=== PATIENT | female | born 1960 | race Caucasian/White ===

== ENCOUNTER 2017-07-06 23:37 | Inpatient (IN) | payer MEDICAID ==
[2017-07-07] MEDS ORDERED: diltiaZEM 100 mg Vial ( ADD-VANTAGE ) IV ONE (00:32)
[2017-07-07 01:05] LABS: BASO # 0.1 K/uL (0.0-0.2); BASO % 1.3 % (0.0-2.0); EOS # 0.2 K/uL (0.0-0.7); EOS % 2.5 % (0.0-4.0); HEMATOCRIT 37.6 % (34.0-47.0); LYMPH # 4.3 K/uL (1.0-4.3); LYMPH % 43.8 % (20.0-40.0); MEAN CELL VOLUME 84.5 fl (81.0-99.0); MEAN CORPUSCULAR HEMOGLOBIN 26.4 pg (27.0-31.0); MEAN CORPUSCULAR HGB CONC 31.2 g/dL (33.0-37.0); MONO # 0.8 K/uL (0.0-0.8); MONO % 7.7 % (0.0-10.0); NEUT # 4.4 K/uL (1.8-7.0); NEUT % 44.7 % (50.0-75.0); RED CELL DISTRIBUTION WIDTH 18.3 % (11.5-14.5); WHITE BLOOD COUNT 9.8 K/uL (4.8-10.8)
[2017-07-07 01:15] LABS: ALB/GLOB RATIO 1.4 (1.0-2.1); ALKALINE PHOSPHATASE 50 U/L (38-126); ALT/SGPT 36 U/L (9-52); AST/SGOT 33 U/L (14-36); BILIRUBIN,TOTAL 0.4 mg/dl (0.2-1.3); BLOOD UREA NITROGEN 17 mg/dl (7-17); CALCIUM 10.2 mg/dL (8.4-10.2); CARBON DIOXIDE 24 mmol/L (22-30); CHLORIDE 102 mmol/L (98-107); GFR AFRICAN-AMERICAN 56; GLUCOSE,RANDOM 218 mg/dL (65-105); POTASSIUM 3.9 MMOL/L (3.6-5.0); SODIUM 142 mmol/l (132-148); TOTAL PROTEIN 7.6 G/DL (6.3-8.2)
--- NOTE | 2017-07-07 02:35 | ED PDOC ---
HPI: Hypertension/Hypotension Time Seen by Provider: 07/06/17 23:48 Chief Complaint (Nursing): Palpitations Chief Complaint (Provider): Palpitations History Per: Patient History/Exam Limitations: no limitations Onset/Duration Of Symptoms: Hrs Current Symptoms Are (Timing): Still Present Associated Symptoms: Dizziness. denies: Chest Pain Additional Complaint(s): 56 year old female, past medical history of diabetes, dyslipidemia, arthritis, vertigo, and atrial fibrillation, presents to the ED for evaluation of palpitations. She states that she began to develop a sense of palpitations associated with dizziness at approximately 20:00 this evening. She denies associated chest pains or shortness of breath. She states that symptoms are consistent with past history of rapid atrial fibrillation. She reports compliance with all medications. Denies nausea, vomiting, diaphoresis, fever, or cough. Past Medical History Reviewed: Historical Data, Nursing Documentation, Vital Signs Vital Signs: Last Vital Signs Temp 98.2 F 07/06/17 23:51 Pulse 63 07/07/17 01:30 Resp 17 07/07/17 01:30 BP 111/58 L 07/07/17 01:30 Pulse Ox 99 07/07/17 01:30 - Medical History PMH: Atrial Fibrillation, Diabetes, HTN, Hyperlipidemia Denies: Chronic Kidney Disease - Surgical History Surgical History: (x3) - Family History Family History: States: No Known Family Hx - Home Medications Home Medications: Ambulatory Orders Medication Instructions Recorded Alogliptin Sharad/Metformin HCl 1 tab PO DAILY 07/07/17 [Alogliptin-Metformin 12.5-1000] Atorvastatin [Lipitor] 10 mg PO DAILY 07/07/17 Cyclobenzaprine [Flexeril] 5 mg PO PRN PRN 07/07/17 Diclofenac Sodium [Voltaren] 1 appl TOP DAILY 07/07/17 Diltiazem HCl [Cartia Xt] 1 tab PO DAILY 07/07/17 Empagliflozin [Jardiance] 10 mg PO DAILY 07/07/17 Fenofibrate [Triglide] 1 tab PO DAILY 07/07/17 Gabapentin [Neurontin] 100 mg PO TID 07/07/17 Glipizide [Glipizide ER] 1 tab PO DAILY 07/07/17 Losartan/Hydrochlorothiazide 1 tab PO DAILY 07/07/17 [Losartan-Hctz 100-25 mg Tab] Meclizine [Antivert] 1 tab PO PRN PRN 07/07/17 Repaglinide [Prandin] 2 mg PO DAILY 07/07/17 Warfarin [Coumadin] 1 tab PO DAILY 07/07/17 Warfarin [Coumadin] 10 mg PO DAILY 07/07/17 - Allergies Allergies/Adverse Reactions: Allergies Allergy/AdvReac Type Severity Reaction Status Date / Time No Known Allergies Allergy Unverified 11/19/14 15:50 Review of Systems Constitutional: Negative for: Fever Cardiovascular: Positive for: Palpitations. Negative for: Chest Pain Respiratory: Negative for: Cough, Shortness of Breath Gastrointestinal: Negative for: Nausea, Vomiting Neurological: Positive for: Dizziness Physical Exam - Reviewed Nursing Documentation Reviewed: Yes Vital Signs Reviewed: Yes - Physical Exam Appears: Positive for: Non-toxic, No Acute Distress Head Exam: Positive for: ATRAUMATIC, NORMOCEPHALIC Skin: Positive for: Normal Color, Warm, Dry Eye Exam: Positive for: EOMI, Normal appearance, PERRL Neck: Positive for: Normal, Painless ROM, Supple Cardiovascular/Chest: Positive for: Tachycardia, Irregularly Irregular Respiratory: Positive for: Normal Breath Sounds. Negative for: Respiratory Distress Gastrointestinal/Abdominal: Positive for: Normal Exam, Soft. Negative for: Tenderness Back: Positive for: Normal Inspection. Negative for: L CVA Tenderness, R CVA Tenderness, Other (midline tenderness) Extremity: Positive for: Normal ROM. Negative for: Pedal Edema, Deformity Neurologic/Psych: Positive for: Alert, Oriented. Negative for: Motor/Sensory Deficits - Laboratory Results Result Diagrams: 07/07/17 01:01 07/07/17 01:01 - ECG O2 Sat by Pulse Oximetry: 99 - Critical Care Total Time (In Min): 30 Medical Decision Making Medical Decision Making: Impression: 56 year old female with palpitations in setting of known rapid A-fib Plan: Labs EKG CXR Trial of IV cardizem bolus EK:47 A-fib with RVR at [address] and T wave abnormalities. Resolution of symptoms immediately after Cardizem administered at 01:34 Repeat EKG: Sinus arrhythmia at 69 bpm. CXR: No acute disease. Labs reviewed. No clinically significant abnormalities. Will admit for further monitoring and treatment. Case referred to Dr. Mace who covers Dr. Mir, the patients PMD. Diagnosis: Rapid A-fib with RVR Condition: Fair Scribe Attestation: Documented by Waqar Baer acting as a scribe for Harley Hurley MD. Scribe Attestation: All medical record entries made by the Scribe were at my direction and personally dictated by me. I have reviewed the chart and agree that the record accurately reflects my personal performance of the history, physical exam, medical decision making, and the department course for this patient. I have also personally directed, reviewed, and agree with the discharge instructions and disposition. Disposition - Clinical Impression Clinical Impression: Atrial fibrillation, rapid - Patient ED Disposition Is Patient to be Admitted: Yes Discussed With : Jose Mace Counseled Patient/Family Regarding: Studies Performed, Diagnosis - Disposition Disposition Time: 01:30 Condition: FAIR - Pt Status Changed To: Hospital Disposition Of: Inpatient - Admit Certification Admit to Inpatient:: After my assessment, the patient will require hospitalization for at least two midnights. This is because of the severity of symptoms shown, intensity of services needed, and/or the medical risk in this patient being treated as an outpatient. - POA Present On Arrival: None
[2017-07-07] MEDS ORDERED: Influenza Vaccine 18yr & older 0.5 ML/45 MCG SYR IM ONE (06:00)
[2017-07-07 08:34] LABS: HEMATOCRIT 35.2 % (34.0-47.0); MEAN CELL VOLUME 84.3 fl (81.0-99.0); MEAN CORPUSCULAR HEMOGLOBIN 26.4 pg (27.0-31.0); MEAN CORPUSCULAR HGB CONC 31.3 g/dL (33.0-37.0); RED CELL DISTRIBUTION WIDTH 18.7 % (11.5-14.5); WHITE BLOOD COUNT 7.6 K/uL (4.8-10.8)
[2017-07-07 08:47] LABS: ALB/GLOB RATIO 1.4 (1.0-2.1); ALKALINE PHOSPHATASE 52 U/L (38-126); ALT/SGPT 28 U/L (9-52); AST/SGOT 65 U/L (14-36); BILIRUBIN,TOTAL 0.4 mg/dl (0.2-1.3); BLOOD UREA NITROGEN 16 mg/dl (7-17); CALCIUM 9.8 mg/dL (8.4-10.2); CARBON DIOXIDE 23 mmol/L (22-30); CHLORIDE 103 mmol/L (98-107); CHOLESTEROL 142 mg/dL (0-199); GFR AFRICAN-AMERICAN > 60; GLUCOSE,RANDOM 134 mg/dL (65-105); POTASSIUM 3.9 MMOL/L (3.6-5.0); SODIUM 141 mmol/l (132-148); TOTAL PROTEIN 6.8 G/DL (6.3-8.2)
[2017-07-07] MEDS ORDERED: FENOFIBRATE PO SCH (09:00)
[2017-07-07] MEDS ORDERED: Patient's Own Med (Losartan/Hydrochlorothiazide [Losartan-Hctz 100-25 Mg Tab] 1 TAB) PO SCH (09:00)
[2017-07-07] MEDS ORDERED: Patient's Own Med (Alogliptin Benz/Metformin Hcl [Alogliptin-Metformin 12.5-1000] 1 TAB) PO SCH (09:00)
[2017-07-07] MEDS: GlipiZIDE 10 mg SR Tab PO SCH (09:07)
[2017-07-07] MEDS: diltiaZEM 240 mg/24 Hours CD Cap PO SCH (09:07)
[2017-07-07] MEDS: Insulin Regular 100 units/ml SC SCH ×4 (09:08→21:57)
[2017-07-07 09:18] LABS: THYROID STIMULATING HORMONE 1.04 mIU/ML (0.46-4.68)
--- NOTE | 2017-07-07 09:37 | CARD ---
APPROVED REPORT EKG Measurement Heart [id number] <Conclusion> Atrial fibrillation with rapid ventricular response ST & T wave abnormality, consider inferolateral ischemia Abnormal ECG
--- NOTE | 2017-07-07 11:12 | RAD ---
HISTORY: chest pain COMPARISON: No prior. FINDINGS: LUNGS: No active pulmonary disease. PLEURA: No significant pleural effusion identified, no pneumothorax apparent. CARDIOVASCULAR: Normal. OSSEOUS STRUCTURES: No significant abnormalities. VISUALIZED UPPER ABDOMEN: Normal. OTHER FINDINGS: None. IMPRESSION: No active disease.
--- NOTE | 2017-07-07 13:34 | CP.PCM.CON ---
History of Present Illness - History of Present Illness History of Present Illness: PT PRESENTED WITH CHEST TIGHTNESS AND PALP. THE SX WERE WAXING AND WEANING OVER 1 DAY. UPON ARRIVAL SHE WAS IN RAPID AFIB. SHE HAS CHRONIC AFIB, ON WARFARIN, NO ISSUES WITH BLEEDING, DENIES SYNCOPE, DENIES PRIOR CARDIOVERSION. PT ADMITS TO ROMERO, NO LH, DIZZINESS, WEAKNESS, DIAPHORESIS, N/V/D/C. SHE IS COMPLIANT WITH HER MEDS. Review of Systems - Constitutional Constitutional: As Per HPI. absent: Anorexia, Chills, Daytime Sleepiness, Excessive Sweating, Fatigue, Fever, Frequent Falls, Headache, Increased Appetite , Lethargy, Malaise, Night Sweats, Snoring, Sleep Apnea, Weight Gain, Weight Loss, Weakness, Other - EENT Eyes: As Per HPI. absent: Blind Spots, Blurred Vision, Change in Vision, Decreased Night Vision, Diplopia, Discharge, Dry Eye, Exophthalmos, Floaters, Irritation, Itchy Eyes, Loss of Peripheral Vision, Pain, Photophobia, Requires Corrective Lenses, Sees Flashes, Spots in Vision, Tunnel Vision, Other Visual Disturbances, Loss of Vision, Other Ears: As Per HPI. absent: Decreased Hearing, Ear Discharge, Ear Pain, Tinnitus , Abnormal Hearing, Disequilibrium, Dizziness, Other Nose/Mouth/Throat: As Per HPI. absent: Epistaxis, Nasal Congestion, Nasal Discharge, Nasal Obstruction, Nasal Trauma, Nose Pain, Post Nasal Drip, Sinus Pain, Sinus Pressure, Bleeding Gums, Change in Voice, Dental Pain, Dry Mouth, Dysphagia, Halitosis, Hoarsness, Lip Swelling, Mouth Lesions, Mouth Pain, Odynophagia, Sore Throat, Throat Swelling, Tongue Swelling, Facial Pain, Neck Pain, Neck Mass, Other - Breasts Breasts: As Per HPI. absent: Change in Shape, Mass, Pain, Nipple Discharge, Nipple Inversion, Skin Changes, Swelling, Other - Cardiovascular Cardiovascular: Chest Pain with Activity, Dyspnea on Exertion, Leg Edema, Palpitations, Rapid Heart Rate. absent: As Per HPI, Acrocyanosis, Chest Pain, Chest Pain at Rest, Claudication, Diaphoresis, Dyspnea, Edema, Irregular Heart Rhythm, Pain Radiating to Arm/Neck/Jaw, Leg Ulcers, Lightheadedness, Orthopnea, Paroxysmal Nocturnal Dyspnea, Radiating Pain, Slow Heart Rate, Syncope, Other - Respiratory Respiratory: As Per HPI. absent: Cough, Dyspnea, Hemoptysis, Dyspnea on Exertion, Wheezing, Snoring, Stridor, Pain on Inspiration, Chest Congestion, Excessive Mucous Production, Change in Mucous Color, Pain with Coughing, Other - Gastrointestinal Gastrointestinal: As Per HPI. absent: Abdominal Pain, Belching, Bloating, Change in Bowel Habits, Change in Stool Character, Coffee Ground Emesis, Constipation, Cramping, Diarrhea, Dyspepsia, Dysphagia, Early Satiety, Excessive Flatus, Fecal Incontinence, Heartburn, Hematemesis, Hematochezia, Loose Stools, Melena, Nausea, Odynophagia, Temesmus, Vomiting, Other - Genitourinary Genitourinary: As Per HPI. absent: Change in Urinary Stream, Difficulty Urinating, Dysuria, Flank Pain, Hematuria, Pyuria, Nocturia, Urinary Incontinence, Urinary Frequency, Urinary Hesitance, Urinary Urgency, Voiding Freq/Small Amts, Freq UTI, Hx Renal/Bladder Calculi, Hx /Renal Surgery, Bladder Distension, Other - Reproductive: Female Reproductive:Female: As Per HPI. absent: Amenorrhea, Amenorrhea/ Control, Currently Menstual, Cycle <21 Days, Cycle >35 Days, Cycle Variable, Menses 1-7 Days, Menses >/= 8 Days, Menses Variable, Cycle > 4 Weeks Between, No Menses for 6 Months, Heavy Menses, Light Menses, Normal Menses, Spotting Between Cycles , S/P Hysterectomy, Menopausal, Post Menopausal, Premenarche, Abnormal Vaginal Bleeding, Dysmenorrhea, Dyspareunia, Genital Lesions, Genital Pruritis, Pelvic Pain, Prolapse Symptoms, Sexual Dysfunction, Vaginal Discharge, Vaginal Dryness , Vaginal Odor, Vaginal Pruritis, Other - Menstruation Menstruation: As Per HPI. absent: Amenorrhea, Amenorrhea/ Control, Currently Menstual, Cycle <21 Days, Cycle >35 Days, Cycle Variable, Menses 1-7 Days, Menses >/= 8 Days, Menses Variable, Cycle > 4 Weeks Between, No Menses for 6 Months, Heavy Menses, Light Menses, Normal Menses, Spotting Between Cycles , S/P Hysterectomy, Menopausal, Post Menopausal, Premenarche, Abnormal Vaginal Bleeding, Dysmenorrhea, Other - Musculoskeletal Musculoskeletal: As Per HPI. absent: Abnormal Gait, Arthralgias, Atrophy, Back Pain, Deformity, Joint Swelling, Limited Range of Motion, Loss of Height, Muscle Cramps, Muscle Weakness, Myalgias, Neck Pain, Numbness, Radiating Pain into Limb, Stiffness, Tingling, Other - Integumentary Integumentary: As Per HPI. absent: Acne, Alopecia, Bleeding Lesions, Change in Hair, Change in Nails, Change in Pigmentation, Changing Lesions, Dry Skin, Erythema, Furuncle, Hirsutism, Lesions, New Lesions, Non-Healing Lesions, Photosensitivity, Pruritus, Rash, Skin Pain, Skin Ulcer, Sores, Striae, Swelling , Unusual Bruising, Wounds, Jaundice, Other - Neurological Neurological: As Per HPI. absent: Abnormal Gait, Abnormal Hearing, Abnormal Movements, Abnormal Speech, Behavioral Changes, Burning Sensations, Confusion, Convulsions, Disequilibrium, Dizziness, Numbness, Focal Weakness, Frequent Falls , Headaches, Lack of Coordination, Loss of Vision, Memory Loss, Paresthesias, Radicular Pain, Restless Legs, Sensory Deficit, Syncope, Tingling, Tremor, Vertigo, Weakness, Other Visual Disturbances, Other - Psychiatric Psychiatric: As Per HPI. absent: Abnormal Sleep Pattern, Anhedonia, Anxiety, Auditory Hallucinations, Behavioral Changes, Change in Appetite, Change in Libido, Confusion, Depression, Difficulty Concentrating, Hallucinations, Homicidal Ideation, Hopelessness, Irritability, Memory Loss, Mood Swings, Panic Attacks, Paranoia, Suicidal Ideation, Visual Hallucinations, Tactile Hallucinations, Other - Endocrine Endocrine: As Per HPI. absent: Change in Body Appearance, Change in Libido, Cold Intolorance, Deepening of Voice, Excessive Sweating, Fatigue, Flushing, Heat Intolorance, Increase in Ring/Shoe/Hat Size, Palpitations, Polydipsia, Polyphagia, Polyuria, Other - Hematologic/Lymphatic Hematologic: As Per HPI. absent: Easy Bleeding, Easy Bruising, Lymphadenopathy , Other Past Patient History - Past Medical History & Family History Past Medical History?: Yes - Past Social History Smoking Status: Former Smoker Chewing Tobacco Use: No Cigar Use: No Alcohol: None Drugs: Denies - CARDIAC Hx Atrial Fibrillation: Yes Hx Hypertension: Yes - PULMONARY Hx Respiratory Disorders: No - NEUROLOGICAL Hx Neurological Disorder: Yes Hx Vertigo: Yes - HEENT Hx HEENT Problems: No - RENAL Hx Chronic Kidney Disease: No - ENDOCRINE/METABOLIC Hx Endocrine Disorders: Yes Hx Diabetes Mellitus Type 2: Yes - HEMATOLOGICAL/ONCOLOGICAL Hx Blood Disorders: No - INTEGUMENTARY Hx Dermatological Problems: No - MUSCULOSKELETAL/RHEUMATOLOGICAL Hx Musculoskeletal Disorders: Yes Hx Arthritis: Yes Hx Falls: No - GASTROINTESTINAL Hx Gastrointestinal Disorders: No - GENITOURINARY/GYNECOLOGICAL Hx Genitourinary Disorders: No - PSYCHIATRIC Hx Psychophysiologic Disorder: No Hx Substance Use: No - SURGICAL HISTORY Hx Surgeries: Yes Hx Cataract Extraction: Yes Hx Section: Yes (x3) - ANESTHESIA Hx Anesthesia: Yes Hx Anesthesia Reactions: No Hx Malignant Hyperthermia: No Meds Allergies/Adverse Reactions: Allergies Allergy/AdvReac Type Severity Reaction Status Date / Time No Known Allergies Allergy Unverified 11/19/14 15:50 - Medications Medications: Current Medications Atorvastatin Calcium (Lipitor) 10 mg PO DAILY [facility] Last Admin: 07/07/17 09:08 Dose: 10 mg Cyclobenzaprine HCl (Flexeril) 5 mg PO BID PRN PRN Reason: Muscle Spasm Diltiazem HCl (Cardizem Cd) 240 mg PO DAILY [facility] Last Admin: 07/07/17 09:07 Dose: 240 mg Fenofibrate (Tricor) 145 mg PO DAILY [facility] Last Admin: 07/07/17 09:07 Dose: 145 mg Gabapentin (Neurontin) 100 mg PO TID [facility] Last Admin: 07/07/17 12:30 Dose: 100 mg Glipizide (Glucotrol Xl) 10 mg PO DAILY [facility] Last Admin: 07/07/17 09:07 Dose: 10 mg Home Med (Alogliptin Sharad/Metformin Hcl [Alogliptin-Metformin 12.5-1000]) 1 tab PO DAILY [facility] Home Med (Diclofenac Sodium [Voltaren]) 1 appl TOP DAILY [facility] Home Med (Empagliflozin [Jardiance]) 10 mg PO DAILY [facility] Hydrochlorothiazide (Hydrodiuril) 25 mg PO DAILY [facility] Last Admin: 07/07/17 09:08 Dose: 25 mg Insulin Human Regular (Humulin R) 0 units SC [facility] PRN Reason: Protocol Last Admin: 07/07/17 12:29 Dose: 2 units Losartan Potassium (Cozaar) 100 mg PO DAILY [facility] Last Admin: 07/07/17 09:07 Dose: 100 mg Meclizine HCl (Antivert) 12.5 mg PO BID PRN PRN Reason: Dizziness Repaglinide (Prandin) 2 mg PO DAILY [facility] Last Admin: 07/07/17 09:08 Dose: 2 mg Physical Exam - Constitutional Appears: Well - Head Exam Head Exam: ATRAUMATIC, NORMAL INSPECTION, NORMOCEPHALIC - Eye Exam Eye Exam: EOMI, Normal appearance, PERRL. absent: Conjunctival injection, Nystagmus, Periorbital swelling, Periorbital tenderness, Scleral icterus Pupil Exam: NORMAL ACCOMODATION, PERRL. absent: Fixed, Irregular, Miosis, Mydriatic, Unequal - ENT Exam ENT Exam: Mucous Membranes Moist, Normal Exam. absent: Mucous Membranes Dry, Normal External Ear Exam, Normal Oropharynx, TM's Normal Bilaterally - Neck Exam Neck exam: Positive for: Normal Inspection. Negative for: Full Rom, Lymphadenopathy, Meningismus, Tenderness, Thyromegaly - Respiratory Exam Respiratory Exam: Clear to Auscultation Bilateral, NORMAL BREATHING PATTERN. absent: Accessory Muscle Use, Chest Wall Tenderness, Decreased Breath Sounds, Prolonged Expiratory Phase, Rales, Rhonchi, Wheezes, Respiratory Distress, Stridor - Cardiovascular Exam Cardiovascular Exam: Irregular Rhythm, +S1, +S2, Systolic Murmur. absent: Bradycardia, Tachycardia, Clicks, Diastolic murmur, Gallop, REGULAR RHYTHM, JVD , RRR, Rubs, +S4 - GI/Abdominal Exam GI & Abdominal Exam: Normal Bowel Sounds, Soft. absent: Bruit, Diminished Bowel Sounds, Distended, Firm, Guarding, Hernia, Hyperactive Bowel Sounds, Hypoactive Bowel Sounds, Mass, Organomegaly, Pulsatile Mass, Rebound, Rigid, Tenderness - Rectal Exam Rectal Exam: Deferred - Extremities Exam Extremities exam: Positive for: pedal edema, pedal pulses present. Negative for : calf tenderness, full ROM, joint swelling, normal capillary refill, normal inspection, tenderness - Back Exam Back exam: NORMAL INSPECTION. absent: CVA tenderness (L), CVA tenderness (R), FULL ROM, muscle spasm, paraspinal tenderness, rash noted, tenderness, vertebral tenderness - Neurological Exam Neurological exam: Alert, CN II-XII Intact, Normal Gait, Oriented x3, Reflexes Normal - Psychiatric Exam Psychiatric exam: Normal Affect, Normal Mood - Skin Skin Exam: Dry, Intact, Normal Color, Warm Results - Vital Signs Recent Vital Signs: Last Vital Signs Temp 98.5 F 07/07/17 12:29 Pulse 50 L 07/07/17 12:29 Resp 14 07/07/17 12:29 BP 96/65 L 07/07/17 12:29 Pulse Ox 97 07/07/17 12:29 - Labs Result Diagrams: 07/07/17 08:05 07/07/17 08:05 Labs: Laboratory Results - last 24 hr 07/07/17 07/07/17 07/07/17 01:01 01:01 01:01 WBC 9.8 RBC 4.46 Hgb 11.7 L Hct 37.6 MCV 84.5 MCH 26.4 L MCHC 31.2 L RDW 18.3 H Plt Count 387 MPV 9.0 Neut % (Auto) 44.7 L Lymph % (Auto) 43.8 H Lamb % (Auto) 7.7 Eos % (Auto) 2.5 Baso % (Auto) 1.3 Neut # 4.4 Lymph # 4.3 Lamb # 0.8 Eos # 0.2 Baso # 0.1 PT 27.4 H INR 2.6 H APTT 45.0 H Sodium 142 Potassium 3.9 Chloride 102 Carbon Dioxide 24 Anion Gap 20 BUN 17 Creatinine 1.2 Est GFR ( Amer) 56 Est GFR (Non-Af Amer) 46 POC Glucose (mg/dL) Random Glucose 218 H Calcium 10.2 Total Bilirubin 0.4 AST 33 ALT 36 Alkaline Phosphatase 50 Troponin I < 0.0120 Total Protein 7.6 Albumin 4.4 Globulin 3.2 Albumin/Globulin Ratio 1.4 Triglycerides Cholesterol LDL Cholesterol Direct HDL Cholesterol Vitamin B12 TSH 3rd Generation 07/07/17 07/07/17 07/07/17 05:07 08:05 08:05 WBC 7.6 RBC 4.17 Hgb 11.0 L Hct 35.2 MCV 84.3 MCH 26.4 L MCHC 31.3 L RDW 18.7 H Plt Count 346 MPV Neut % (Auto) Lymph % (Auto) Lamb % (Auto) Eos % (Auto) Baso % (Auto) Neut # Lymph # Lamb # Eos # Baso # PT INR APTT Sodium 141 Potassium 3.9 Chloride 103 Carbon Dioxide 23 Anion Gap 19 BUN 16 Creatinine 1.1 Est GFR ( Amer) > 60 Est GFR (Non-Af Amer) 51 POC Glucose (mg/dL) 108 Random Glucose 134 H Calcium 9.8 Total Bilirubin 0.4 AST 65 H D ALT 28 Alkaline Phosphatase 52 Troponin I Total Protein 6.8 Albumin 4.0 Globulin 2.9 Albumin/Globulin Ratio 1.4 Triglycerides 237 H Cholesterol 142 LDL Cholesterol Direct 80 HDL Cholesterol 36 Vitamin B12 > 1000 H TSH 3rd Generation 1.04 07/07/17 07/07/17 08:05 11:05 WBC RBC Hgb Hct MCV MCH MCHC RDW Plt Count MPV Neut % (Auto) Lymph % (Auto) Lamb % (Auto) Eos % (Auto) Baso % (Auto) Neut # Lymph # Lamb # Eos # Baso # PT INR APTT Sodium Potassium Chloride Carbon Dioxide Anion Gap BUN Creatinine Est GFR ( Amer) Est GFR (Non-Af Amer) POC Glucose (mg/dL) 246 H Random Glucose Calcium Total Bilirubin AST ALT Alkaline Phosphatase Troponin I < 0.0120 Total Protein Albumin Globulin Albumin/Globulin Ratio Triglycerides Cholesterol LDL Cholesterol Direct HDL Cholesterol Vitamin B12 > 1000 H TSH 3rd Generation - EKG Data EKG Interpreted by: Myself Rate: Tachycardia - Impressions Impression: RAPID AFIB Assessment & Plan (1) Chest pain Status: Acute (2) Palpitation Status: Acute (3) ROMERO (dyspnea on exertion) Status: Acute (4) Low BP Status: Acute (5) Atrial fibrillation, rapid Status: Acute - Assessment and Plan (Free Text) Plan: BP LOW, STOP LOSARTAN AND HCTZ ON WARFARIN NEEDS ECHO AND ST CURRENTLY IN SR CONT MONITOR 1GM MAG JESSICA PALACIOS IN AM
[2017-07-07] MEDS ORDERED: Magnesium Sulfate 1 gm in D5W 1 GM/100 ML BAG IVPB ONE (17:25)
[2017-07-07] MEDS ORDERED: Magnesium Sulfate 1 GM in Dextrose 5% In Water 100 ML IV ONE (17:45)
--- NOTE | 2017-07-08 05:31 | HP ---
CHIEF COMPLAINT: Palpitations. HISTORY OF PRESENT ILLNESS: This is a 56-year-old female known case of diabetes, hypertension, arthritis, vertigo, atrial fibrillation, who was having palpitations so the patient was brought to the emergency room and was admitted for further management. REVIEW OF SYSTEMS: Negative for headache, dizziness, syncope. No loss of consciousness, nausea, vomiting, diarrhea, constipation. Any knee joint or extremity pain. Review of systems of all other organ system are unremarkable. PAST MEDICAL HISTORY: Significant for hypertension, diabetes, atrial fibrillation and vertigo. PAST SURGICAL HISTORY: Positive for section. PERSONAL HISTORY: The patient is currently nonsmoker, nondrinker. No substance abuse. MEDICATIONS: The patient is on multiple medications including , Lipitor, Flexeril, Voltaren, Cartia XT, Jardiance, Triglide, Neurontin, glipizide, losartan, hydrochlorothiazide, Antivert, Prandin and Coumadin. ALLERGIES: THE PATIENT IS NOT ALLERGIC TO ANY MEDICATION. FAMILY HISTORY: Noncontributory. PHYSICAL EXAMINATION: GENERAL: Well-built, well-nourished 56-year-old female, in no acute distress. VITAL SIGNS: Temperature afebrile, pulse 88, respirations 18, blood pressure 130/77. HEENT: Pupils are reacting to light. NECK: No JVD. No thyromegaly. No lymphadenopathy. No nystagmus. Normocephalic and atraumatic skull. HEART: S1 and S2 normal. The patient has irregularly irregular rhythm. No murmur, gallop or rub is heard. LUNGS: Shows good bilateral air entry. No rales or rhonchi. ABDOMEN: Soft and nontender. No organomegaly. No fluid. Bowel sounds are present. EXTREMITIES: No edema. No calf swelling. No tenderness. No acute ischemia. CENTRAL NERVOUS SYSTEM: Essentially unchanged. DIAGNOSTIC DATA: Available diagnostic data reviewed. Telemetry monitoring shows atrial fibrillation with controlled ventricular rate. At this time, WBC is 7.6, hemoglobin 11, hematocrit 35.2 and platelets 346. Sodium 141, potassium 3.9, chloride 103, BUN 16 and creatinine 1.1. Accu-cheks are 218, 314 and 246. SMA-12 otherwise is unremarkable. EKG shows atrial fibrillation without any acute ST-T changes. Chest x-ray is clear. ADMITTING IMPRESSION: Atrial fibrillation with rapid ventricular rate, hypertension, type 2 diabetes with hyperglycemia, coronary artery disease. PLAN: As ordered. Case and plan discussed with the patient. Jose Mace MD
[2017-07-08 05:43] LABS: BASO # 0.1 K/uL (0.0-0.2); BASO % 0.9 % (0.0-2.0); EOS # 0.3 K/uL (0.0-0.7); EOS % 3.3 % (0.0-4.0); LYMPH % 37.9 % (20.0-40.0); MEAN CELL VOLUME 84.3 fl (81.0-99.0); MEAN CORPUSCULAR HEMOGLOBIN 26.8 pg (27.0-31.0); MEAN CORPUSCULAR HGB CONC 31.8 g/dL (33.0-37.0); MEAN PLATELET VOLUME 8.6 fl (7.2-11.7); MONO # 0.7 K/uL (0.0-0.8); MONO % 9.1 % (0.0-10.0); NEUT # 3.9 K/uL (1.8-7.0); NEUT % 48.8 % (50.0-75.0); NRBC % 0.1 % (0.0-0.0); RED CELL DISTRIBUTION WIDTH 18.2 % (11.5-14.5); WHITE BLOOD COUNT 7.9 K/uL (4.8-10.8)
[2017-07-08 05:51] LABS: ALB/GLOB RATIO 1.4 (1.0-2.1); BILIRUBIN,TOTAL 0.5 mg/dl (0.2-1.3); CALCIUM 10.3 mg/dL (8.4-10.2); MAGNESIUM 2.3 MG/DL (1.6-2.3); POTASSIUM 4.3 MMOL/L (3.6-5.0); TOTAL PROTEIN 7.1 G/DL (6.3-8.2)
[2017-07-08] MEDS: Insulin Regular 100 units/ml SC SCH ×4 (07:02→21:23)
--- NOTE | 2017-07-08 08:44 | PN ---
DATE: 07/08/2017 SUBJECTIVE: The patient is seen and examined. Interim events noted. Consults noted and appreciated. Cardiology followup and intervention noted and appreciated. The patient remains in progressive care unit, on telemetry monitoring. Denies any specific complaints. No chest pain. No shortness of breath. Palpitations resolved. PHYSICAL EXAMINATION: GENERAL: The patient is in no acute distress. VITAL SIGNS: Stable. HEART: S1 and S2, irregularly irregular . LUNGS: Good bilateral air exchange. ABDOMEN: Soft and nontender. EXTREMITIES: No edema. No calf swelling. No tenderness. No acute ischemia. CENTRAL NERVOUS SYSTEMS: Essentially unchanged. DIAGNOSTIC DATA: Available diagnostic data reviewed. Telemetry monitoring does not show any significant arrhythmias. IMPRESSION: Overall, the patient's general medical condition is stable and improving. The patient needs for possible echocardiogram and nuclear stress test. PLAN: As ordered. Case and plan discussed with the patient. Jose Mace MD
[2017-07-08] MEDS ORDERED: Aminophylline 25 mg/ml Inj ONE (10:17)
[2017-07-08] MEDS: diltiaZEM 240 mg/24 Hours CD Cap PO SCH (16:32)
[2017-07-08] MEDS: GlipiZIDE 10 mg SR Tab PO SCH (16:33)
--- NOTE | 2017-07-08 20:22 | CARD ---
APPROVED REPORT EXAM: Two-dimensional and M-mode echocardiogram with Doppler and color Doppler. Other Information Quality : GoodRhythm : NSR INDICATION Palpitations 2D DIMENSIONS IVSd0.91 (0.7-1.1cm)LVDd4.26 (3.9-5.9cm) LVOT Diameter1.96 (1.8-2.4cm)PWd0.92 (0.7-1.1cm) IVSs1.01 (0.8-1.2cm)LVDs2.82 (2.5-4.0cm) FS (%) 33.8 %PWs1.01 (0.8-1.2cm) M-Mode DIMENSIONS Left Atrium (MM)4.12 (2.5-4.0cm)IVSd1.03 (0.7-1.1cm) Aortic Root3.12 (2.2-3.7cm)LVDd3.91 (4.0-5.6cm) Aortic Cusp Exc.1.97 (1.5-2.0cm)PWd1.09 (0.7-1.1cm) IVSs1.47 cmFS (%) 49 % LVDs2.00 (2.0-3.8cm)PWs1.35 cm Mitral Valve MV E Ieidrzqb44.1cm/sMV DECEL [id number] A Bpkotrvy45.8cm/s MV GWC57mdL/A ratio1.7MVA (PHT)2.82cm2 TDI Lateral E' Peak V12.71cm/sMedial E' Peak V7.74cm/sE/Lateral E'5.6 E/Medial E'9.2 LEFT VENTRICLE The left ventricle is normal in size. There is normal left ventricular wall thickness. The left ventricular function is normal. The left ventricular ejection fraction is - 65-70%. There is normal LV segmental wall motion. The left ventricular diastolic function is normal. No left ventricle thrombus noted on this study. There is no ventricular septal defect visualized. There is no left ventricular aneurysm. There is no mass noted in the left ventricle. RIGHT VENTRICLE The right ventricle is normal size. There is normal right ventricular wall thickness. The right ventricular systolic function is normal. ATRIA The left atrium size is normal. There is no thrombus suspected in the left atrium. The right atrium appears mildly dilated on some 2D views. The interatrial septum is intact with no evidence for an atrial septal defect. AORTIC VALVE The aortic valve is normal in structure and function. No aortic regurgitation is present. There is no aortic valvular stenosis. MITRAL VALVE The mitral valve is normal in structure and function. There is no evidence of mitral valve prolapse. There is no mitral valve stenosis. There is no mitral valve regurgitation noted. TRICUSPID VALVE The tricuspid valve is normal in structure and function. There is trace tricuspid regurgitation. There is no tricuspid valve prolapse or vegetation. There is no tricuspid valve stenosis. PULMONIC VALVE The pulmonic valve is not well visualized. Doppler studies of the PV were not performed. GREAT VESSELS The aortic root is normal in size. The IVC is normal in size and collapses >50% with inspiration. PERICARDIAL EFFUSION The pericardium appears normal. There is no pleural effusion. <Conclusion> The left ventricle is normal in size and wall thickness. The left ventricular function is normal. The left ventricular ejection fraction is - 65-70%. The mitral, aortic and tricuspid valves are normal. There is trace tricuspid regurgitation.
[2017-07-09 06:19] LABS: HEMATOCRIT 36.8 % (34.0-47.0); MEAN CELL VOLUME 84.2 fl (81.0-99.0); MEAN CORPUSCULAR HEMOGLOBIN 26.6 pg (27.0-31.0); MEAN CORPUSCULAR HGB CONC 31.6 g/dL (33.0-37.0); RED CELL DISTRIBUTION WIDTH 18.2 % (11.5-14.5); WHITE BLOOD COUNT 7.8 K/uL (4.8-10.8)
[2017-07-09 06:30] LABS: ALB/GLOB RATIO 1.4 (1.0-2.1); BILIRUBIN,TOTAL 0.4 mg/dl (0.2-1.3); CALCIUM 10.3 mg/dL (8.4-10.2); POTASSIUM 4.4 MMOL/L (3.6-5.0); TOTAL PROTEIN 7.5 G/DL (6.3-8.2)
[2017-07-09] MEDS: Insulin Regular 100 units/ml SC SCH ×4 (06:34→21:32)
[2017-07-09 08:04] VITALS: RESP 18
[2017-07-09] MEDS: diltiaZEM 240 mg/24 Hours CD Cap PO SCH (08:47)
[2017-07-09] MEDS: GlipiZIDE 10 mg SR Tab PO SCH (08:49)
--- NOTE | 2017-07-09 13:24 | CP.PCM.PN ---
<Byron Piedra - Last Filed: 07/10/17 11:14> Subjective - Date & Time of Evaluation Date of Evaluation: 07/09/17 Time of Evaluation: 13:22 - Subjective Subjective: pt seen and examined at bedside this morning with attending. No acute events overnight. Afebrile. No new complaints. Denies any CP/SOB/Palpitations, N/V/D/C , urinary symptoms. Objective - Vital Signs/Intake and Output Vital Signs (last 24 hours): Temp Pulse Resp BP Pulse Ox 98.1 F 53 L 18 113/78 96 07/09/17 12:00 07/09/17 12:00 07/09/17 12:00 07/09/17 12:00 07/09/17 12:00 - Medications Medications: Current Medications Atorvastatin Calcium (Lipitor) 10 mg PO DAILY [facility] Last Admin: 07/09/17 08:49 Dose: 10 mg Cyclobenzaprine HCl (Flexeril) 5 mg PO BID PRN PRN Reason: Muscle Spasm Diltiazem HCl (Cardizem Cd) 240 mg PO DAILY [facility] Last Admin: 07/09/17 08:47 Dose: 240 mg Fenofibrate (Tricor) 145 mg PO DAILY [facility] Last Admin: 07/09/17 08:49 Dose: 145 mg Gabapentin (Neurontin) 100 mg PO TID [facility] Last Admin: 07/09/17 08:49 Dose: 100 mg Glipizide (Glucotrol Xl) 10 mg PO DAILY [facility] Last Admin: 07/09/17 08:49 Dose: 10 mg Home Med (Alogliptin Sharad/Metformin Hcl [Alogliptin-Metformin 12.5-1000]) 1 tab PO DAILY [facility] Home Med (Diclofenac Sodium [Voltaren]) 1 appl TOP DAILY [facility] Home Med (Empagliflozin [Jardiance]) 10 mg PO DAILY [facility] Insulin Human Regular (Humulin R) 0 units SC ACHS [facility] PRN Reason: Protocol Last Admin: 07/09/17 06:34 Dose: 1 units Meclizine HCl (Antivert) 12.5 mg PO BID PRN PRN Reason: Dizziness Repaglinide (Prandin) 2 mg PO DAILY [facility] Last Admin: 07/09/17 08:49 Dose: 2 mg - Labs Labs: 07/09/17 05:40 07/09/17 05:40 PT 25.7 Seconds (9.8-13.1) H 07/09/17 05:40 INR 2.5 (0.9-1.2) H 07/09/17 05:40 APTT 45.0 Seconds (25.6-37.1) H 07/07/17 01:01 - Constitutional Appears: Non-toxic, No Acute Distress - Respiratory Exam Respiratory Exam: Clear to Ausculation Bilateral, NORMAL BREATHING PATTERN. absent: Decreased Breath Sounds, Rales, Rhonchi, Wheezes, Respiratory Distress - Cardiovascular Exam Cardiovascular Exam: Irregular Rhythm, RRR, +S1, +S2. absent: Tachycardia, Diastolic murmur, Gallop, REGULAR RHYTHM, JVD, Rubs, Murmur - GI/Abdominal Exam GI & Abdominal Exam: Soft, Normal Bowel Sounds. absent: Tenderness Assessment and Plan (1) Atrial fibrillation, rapid Assessment & Plan: resolved, pt has been sinus for duration of stay started on Eliquis, awaiting results of myocardial perfusion scan and cardio clearance Status: Acute <Mace,Jose K - Last Filed: 07/12/17 16:27> Objective - Vital Signs/Intake and Output Vital Signs (last 24 hours): Temp Pulse Resp BP Pulse Ox 98 F 55 L 18 115/73 97 07/10/17 13:00 07/10/17 13:00 07/10/17 13:00 07/10/17 13:00 07/10/17 13:00 - Labs Labs: 07/09/17 05:40 07/09/17 05:40 PT 27.7 Seconds (9.8-13.1) H 07/10/17 05:40 INR 2.6 (0.9-1.2) H 07/10/17 05:40 APTT 45.0 Seconds (25.6-37.1) H 07/07/17 01:01 Assessment and Plan - Assessment and Plan (Free Text) Assessment: Patient was personally seen and examined by me in rounds with residents. Available labs and diagnostic data reviewed. Case, Patient's condition and management plan Discussed with residents in rounds. Agree with resident's progress note. Plan: As ordered.
--- NOTE | 2017-07-09 18:51 | CP.PCM.PN ---
Subjective - Date & Time of Evaluation Date of Evaluation: 07/09/17 Time of Evaluation: 18:49 - Subjective Subjective: PTS MEDS REVIEWED FROM HOME. HER ST WAS NONISCHEMIC. CURRENTLY SR. Objective - Vital Signs/Intake and Output Vital Signs (last 24 hours): Temp Pulse Resp BP Pulse Ox 97.6 F 55 L 18 133/63 95 07/09/17 16:00 07/09/17 16:00 07/09/17 16:00 07/09/17 16:00 07/09/17 16:00 - Medications Medications: Current Medications Atorvastatin Calcium (Lipitor) 10 mg PO DAILY [facility] Last Admin: 07/09/17 08:49 Dose: 10 mg Camphor/Menthol (Bengay) 1 applic TOP DAILY [facility] Cyclobenzaprine HCl (Flexeril) 5 mg PO BID PRN PRN Reason: Muscle Spasm Diltiazem HCl (Cardizem Cd) 240 mg PO DAILY [facility] Last Admin: 07/09/17 08:47 Dose: 240 mg Fenofibrate (Tricor) 145 mg PO DAILY [facility] Last Admin: 07/09/17 08:49 Dose: 145 mg Gabapentin (Neurontin) 100 mg PO TID [facility] Last Admin: 07/09/17 17:04 Dose: 100 mg Glipizide (Glucotrol Xl) 10 mg PO DAILY [facility] Last Admin: 07/09/17 08:49 Dose: 10 mg Home Med (Empagliflozin [Jardiance]) 10 mg PO DAILY [facility] Insulin Human Regular (Humulin R) 0 units SC ACHS [facility] PRN Reason: Protocol Last Admin: 07/09/17 17:04 Dose: 2 units Meclizine HCl (Antivert) 12.5 mg PO BID PRN PRN Reason: Dizziness Metformin HCl (Glucophage) 1,000 mg PO DAILY [facility] Repaglinide (Prandin) 2 mg PO DAILY [facility] Last Admin: 07/09/17 08:49 Dose: 2 mg Sitagliptin Phosphate (Januvia) 50 mg PO DAILY [facility] - Labs Labs: 07/09/17 05:40 07/09/17 05:40 PT 25.7 Seconds (9.8-13.1) H 07/09/17 05:40 INR 2.5 (0.9-1.2) H 07/09/17 05:40 APTT 45.0 Seconds (25.6-37.1) H 07/07/17 01:01 Assessment and Plan (1) Chest pain Status: Acute (2) Palpitation Status: Acute (3) ROMERO (dyspnea on exertion) Status: Acute (4) Low BP Status: Acute (5) Atrial fibrillation, rapid Status: Acute - Assessment and Plan (Free Text) Plan: PT OK FOR D/C TO HOME she is to restart her coumadin STOP PLAVIX CONT ASA CONT OTHER MEDS SHE IS INSTRUCTED TO FU WITH DR FAIR IN CLINIC.
[2017-07-10] MEDS: Insulin Regular 100 units/ml SC SCH ×2 (06:44→11:29)
[2017-07-10] MEDS ORDERED: Menthol/Methyl Salicylate Oinment TOP SCH (09:00)
[2017-07-10] MEDS: diltiaZEM 240 mg/24 Hours CD Cap PO SCH (09:14)
[2017-07-10] MEDS: GlipiZIDE 10 mg SR Tab PO SCH (09:15)
[2017-07-10 12:15] VITALS: BP 115/73; PULSE 55; TEMP 98; O2SAT 97
--- NOTE | 2017-07-10 13:32 | CP.PCM.PCO ---
Assessment & Plan - Assessment and Plan (Free Text) Assessment: pt. doing well, ambulating in hallway, denies sob, cp, dizziness, fever chills n /v patient s/p stress test yesterday Images were reviewed by and discussed with Stress test Negative as per and - pt. cleared for discharge to Home today by patient's PMD notified and all meds reviewed- pt is not on asa/ plavix pt. to continue current meds/ coumadin for AFib pt. to f/u with outpatient in 1 week f/u with in clinic 1 week cont. current meds
--- NOTE | 2017-07-10 16:31 | CARD ---
APPROVED REPORT Protocol: LEXISCAN Test Type: Stress Nuclear Medications: LIPITOR, FLEXERIL, VOLTARNE CARTIA XT, JARDIANCE, TRIGLIDE, NEURONTIN, GLIPIZIDE, LOSARTAN, HYDROCHLORATHIAZIDE, ANTIVERT, PRANDIN, COUMADIN Medical History: HYPERTENSION, DIABETES, ATRIAL FIBRILLATION, VERTIGO Target HR: 163 bpm Resting ECG: normal Resting Heart Rate: 55 bpm Resting Blood Pressure: 111/56mmHg submaximum (85%): 139 bpm PROCEDURE Pharmacologic stress testing was performed using 0.4mg per 5ml of regadenoson given intravenously over 7-10 seconds. POST EXERCISE Reason for Termination: Completed the study Target HR: No Max HR: 79 bpm 52% of Maximum Predicted HR: 163 bpm Exercise duration: 01:00 min:sec, 0 Stage Exercise capacity: 1.0METs Max Blood Pressure: 154/74mmHg Blood Pressure response to exercise: Pharmacological Heart Rate response to exercise: Pharmacological Chest Pain: No, none Angina index: 0 Arrhythmia: No, none ST Change: No, none Deviation: 0 mm Clinical Indications Under Appropriate Use Criteria chest pain and palpitations Stress EKG Interpretation Normal pharmacological portion of the stress test. EXAM: Myocardial Perfusion REST/STRESS Image QualityGood Imaging Protocol The imaging protocol used to acquire images was Rest Tc-99m/stress Tc-99m 1 day Rest Spect myocardial perfusion imaging was performed in supine position 40 minutes following the injection of 10 mCi of Tc-99 Myoview. Time of rest injection: 8:01 Time of rest imagin:45 At peak stress, the patient was injected intravenously with 30mCi of Tc-99 tetrofosmin after an infusion time of minutes and seconds. Time of stress injection: 10:35 Time of stress imagin:30 Gated Stress Spect was performed 120 minutes after intravenous Tc-99 Myoview injection. The images were gated to evaluate regional wall motion and calculate ventricular ejection fraction. NUCLEAR IMAGE INTERPRETATION The rest and stress images show normal perfusion, normal contraction and thickening. LV Perfusion The perfusion of the left ventricle was normal on the standard three tomographic and the raw bullseye images. Wall Motion normal LVEF of 76% CONCLUSION 1. The patient is a 56 year old female referred for an pharmacological stress test due to chest pain and palpitations. She also has a history of hypertension, atrial fibrillation and Type 2 DM. Her medicines include atorvastatin, cartia, losartan and warfarin. The resting EKG shows sinus rhythm. The patient was hooked-up to a continuous laboratory monitor and lexiscan at a dose of 0.4 mgs/5ml was injected intravenously. She tolerated the lexiscan well without any chest pain or EKG changes. The vital signs were stable and there weren't any side effects from the lexiscan. The nuclear scans showed normal perfusion of the left ventricle. The LVEF on the gated study was 67%. 2. Impression: Negative pharmacological stress test for ischemia. LVEF of 67%. Recommendation medical treatment
== END 2017-07-10 15:07 | disposition home or self-care (01) | DRG 138 ==
LOC: H.ER 23:37 → H.ERHOLD 07-07 01:47 → OBSVTOIN 07-07 02:28 → H.TEL 07-07 02:49
PROVIDERS: ADMIT Internal Medicine; ATTEND Internal Medicine
PROC: 3E0234Z Introduction of Serum, Toxoid and Vaccine into Muscle, Percutaneous Approach (ICD-10-PCS; principal; 2017-07-07)
DX: I48.2 Chronic atrial fibrillation (principal); E11.65 Type 2 diabetes mellitus with hyperglycemia; I10 Essential (primary) hypertension; I25.10 Atherosclerotic heart disease of native coronary artery without angina pectoris; E78.5 Hyperlipidemia, unspecified; M19.90 Unspecified osteoarthritis, unspecified site; R03.1 Nonspecific low blood-pressure reading; Z23 Encounter for immunization; Z87.891 Personal history of nicotine dependence; Z79.01 Long term (current) use of anticoagulants